=== PATIENT | female | born 1965 | race Caucasian/White ===

== ENCOUNTER 2018-07-18 19:42 | Emergency (ER) | payer MEDICAID ==
[~2018-07-18] VITALS: Ht 162.6 cm; Wt 81.2 kg
[2018-07-18 20:14] VITALS: Ht 162.6 cm; Wt 81.2 kg
[2018-07-19 01:24] VITALS: BP 143/92
== END 2018-07-19 01:24 | disposition home or self-care (01) ==
LOC: ED 19:42
DX: R51 Headache (principal); R53.1 Weakness; R11.0 Nausea; H53.8 Other visual disturbances; I10 Essential (primary) hypertension
CPT/HCPCS: J1100; J1200; J1885; J2765; J7030